=== PATIENT | female | born 1960 | race Caucasian/White ===

== ENCOUNTER → 2021-05-11 | Outpatient (CLI) | payer OTHER ==
--- NOTE | 2021-05-12 10:32 | ECHOF ---
Referral Reason:R06.02 Shortness of breath MEASUREMENTS -------- HEIGHT: 162.6 cm WEIGHT: 83.0 kg BP: 112/56 IVSd: 1.1 cm (0.6 - 1.1) LVIDd: 4.6 cm (3.9 - 5.3) LVPWd: 0.9 cm (0.6 - 1.1) EDV(Teich): 97 ml IVSs: 1.4 cm LVIDs: 2.7 cm LVPWs: 1.2 cm %IVS Thck: 32 % ESV(Teich): 28 ml EF(Teich): 71 % %FS: 40 % SV(Teich): 69 ml LA Diam: 3.2 cm (2.7 - 3.8) RVIDd: 3.3 cm (< 3.3) LALs A4C: 4.8 cm LAAs A4C: 15.4 cm LAESV A-L A4C: 42 ml LAESV MOD A4C: 40 ml LALs A2C: 4.8 cm LAAs A2C: 13.8 cm LAESV A-L A2C: 33 ml LAESV MOD A2C: 32 ml LAESV(A-L): 37 ml LAESV Index (A-L): 19.77 ml/m Ao Diam: 3.3 cm (2.0 - 3.7) AV Cusp: 2.2 cm (1.5 - 2.6) EPSS: 0.3 cm MV E Salas: 0.81 m/s MV DecT: 274 ms MV Dec Clinch: 3.0 m/s MV A Salas: 0.94 m/s MV E/A Ratio: 0.86 MV PHT: 79 ms AV Vmax: 1.23 m/s AV maxP.07 mmHg TR Vmax: 2.16 m/s TR maxP.73 mmHg RAP: 5.00 mmHg RVSP: 23.73 mmHg MV EF SLOPE: 61.87 mm/s (70 - 150) MV EXCURSION: 14.58 mm (> 18.000) FINDINGS -------- Sinus rhythm. This was a technically adequate study. The left ventricular size is normal. Left ventricular wall thickness is normal. Overall left vent ricular systolic function is normal with, an EF between 60 - 65 %. The right ventricle is mildly enlarged. The left atrium is normal in size. The right atrium is normal in size. Interatrial and interventricular septum intact. There is mild aortic valve sclerosis. There is trace to mild mitral regurgitation. Mild tricuspid regurgitation present. Right ventricular systolic pressure is normal at < 35 mmHg. Trace/mild (physiologic) pulmonic regurgitation. The aortic root size is normal. Normal inferior vena cava with normal inspiratory collapse consistent with estimated right atrial pre ssure of 5 mmHg. There is no pericardial effusion. CONCLUSIONS -------- 1. The left ventricular size is normal. 2. Left ventricular wall thickness is normal. 3. Overall left ventricular systolic function is normal with, an EF between 60 - 65 %. 4. The right ventricle is mildly enlarged. 5. There is mild aortic valve sclerosis. 6. There is trace to mild mitral regurgitation. 7. Mild tricuspid regurgitation present. 8. Trace/mild (physiologic) pulmonic regurgitation. 9. There is no pericardial effusion. ELECTRONIC SEMICONDUCTOR PROCESSOR: Fabi Domingo RDCS
== END | disposition home or self-care (01) ==
LOC: RADECHMAIN 13:09
PROVIDERS: ATTEND Internal Medicine Geriatric Medicine
DX: I35.8 Other nonrheumatic aortic valve disorders (principal); I34.0 Nonrheumatic mitral (valve) insufficiency; I07.1 Rheumatic tricuspid insufficiency; I37.1 Nonrheumatic pulmonary valve insufficiency
CPT/HCPCS: 93306

== ENCOUNTER → 2022-01-21 | Outpatient (CLI) | payer OTHER ==
--- NOTE | 2022-01-21 15:03 | P.SLEEP ---
History of Present Illness DATE: 01/21/2022 CONSULTATION/NEW PATIENT EVALUATION HISTORY OF PRESENT ILLNESS/SLEEP-WAKE EVALUATION: 61year old lady had been evaluated in the sleep center for possible obstructive sleep apnea hypopnea syndrome. SLEEP SCHEDULE: Usually sleep schedule on weekdays from 10:30 PM until 7 AM, during days off from 11 PM until 9 AM. FALLING ASLEEP: No problems with falling asleep, no TV in bedroom. DURING SLEEP: Patient usually sleeps on the back position, with snoring, awakenings from sleep from snoring, and possibly witnessed episodes of stop breathing during sleep. No history of hypnogogical hallucinations, sleep paralysis, or cataplexy. DURING THE DAY/WAKE STATE: In the morning patient wake up tired, has difficult ies to pay attention, has problems with the memory concentration, irritability and anxiety. [place] sleepiness scale is 8. Patient may take naps up to 2 times per day. PAST MEDICAL HISTORY: Hypothyroidism, ALLERGY to mold, dust, ALLERGIC rhinitis, hyperlipidemia. PAST SURGICAL HISTORY: Tonsillectomy. MEDICATIONS: Claritin, levothyroxine nasal spray. SOCIAL HISTORY: Negative for smoking, alcohol consumption occasional. FAMILY HISTORY: Heart problems, cancer, thyroid problems. REVIEW OF SYSTEMS: Snoring, awakenings from sleep. No fevers. No double vision. No recent chest pain. No shortness of breath. No abdominal pain. No bleeding episodes. No blood in urine. No seizure episodes. PHYSICAL EXAMINATION: GENERAL: A pleasant patient without any distress. VITAL SIGNS: BP 143/90 , HR 82 , RR 16 , weight 191.6 pounds, height 5 foot 3- 1/2 inches, body mass index 33.3 . HEENT: PERRLA, EOMI. Evaluation of oropharynx showed tongue protrudes midline, low position of soft palate Mallampati 23, wide pillars. NECK: Supple. No JVD. Thyroid is not palpable. 16 inches in circumference. LUNGS: Clear to percussion and to auscultation. Good air exchange. No wheezing or rhonchi. HEART: S1, S2 regular. No murmurs, gallops or rubs. ABDOMEN: Soft and nontender. Bowel sounds are present. No organomegaly appreciated. EXTREMITIES: No clubbing or cyanosis. ROPE CUTTER: Awake, alert, and oriented x3. Cranial nerves 2 to 7 intact. There is no fasciculation or atrophy noted. No focal deficits observed. ASSESSMENT: 1. Snoring, small oropharyngeal air space, wide neck 16 inches in circumference, sleepiness naps up to 2 times per day. Obstructive sleep apnea hypopnea syndrome. 2. Mild obesity body mass index 33.3. 3 ALLERGIC rhinitis. 4. ALLERGY to mold and dust. 5 hypothyroidism. 6. Status post tonsillectomy. 7. Hyperlipidemia. PLAN: 1. Polysomnography for evaluation of patient's breathing during sleep. 2. CPAP/BiPAP titration if sleep study confirms obstructive sleep apnea- hypopnea syndrome. 3. Preferable position during sleep on the side. 4. No driving if patient feels any sleepiness. Patient is aware of civil and criminal liability for unsafe driving. 5. Sleep hygiene with regular sleep time for at least 7.5-8 hours. 6. Watching weight. Thank you very much for referring this patient for consultation. Sincerely, Devin Mathew MD, PhD, FAASM. Diplomat of [place] Board of Sleep Medicine, Sleep Medicine Board by [place] [employer] Specialities [place] [employer] of Internal Medicine Roller Inspector And Mender of [facility] [place] Sleep Note - Sleep Note Sleep Note: Temperature: Pulse Rate: Respiratory Rate: Blood Pressure: SpO2: Height: Weight: BMI: Neck Circumference:
== END ==
LOC: SLEEP 13:55
PROVIDERS: ATTEND Internal Medicine
DX: G47.33 Obstructive sleep apnea (adult) (pediatric) (principal); E66.9 Obesity, unspecified; Z68.33 Body mass index [BMI] 33.0-33.9, adult; J30.9 Allergic rhinitis, unspecified; E03.9 Hypothyroidism, unspecified; Z90.09 Acquired absence of other part of head and neck; E78.5 Hyperlipidemia, unspecified; Z91.09 Other allergy status, other than to drugs and biological substances; Z79.890 Hormone replacement therapy
CPT/HCPCS: 99211

== ENCOUNTER → 2022-07-01 | Outpatient (CLI) | payer OTHER ==
--- NOTE | 2022-07-01 16:03 | P.PN ---
Subjective DATE: 07/01/2022 FOLLOW UP VISIT. Patient with obstructive sleep apnea hypopnea syndrome return to sleep center for follow-up visit. Recently patient had sleep study which documented obstructive sleep apnea hypopnea syndrome. Patient was initiated on PAP therapy and today is first visit after treatment was started. Patient was able to use PAP equipment every night for the whole night. Patient significantly improved he'll sleep quality after starting to use CPAP equipment, she feels better during the day does not take naps anymore, she was able to loose some weight after starting to use CPAP The patient does not have significant problems with the mask, PAP pressure and humidification. [place] sleepiness scale is 9. I checked information from PAP unit. PAP unit pressure 5-13, average 9.4 cm H2O. Usage is 100 % for more then 4 hours, average 7.5 hours per night. Leak is 19.6 l/m, which is in acceptable range. Apnea Hypopnea Index is 4.3 during previous months and to 5.3 during this months, which is borderline. Apnea-hypopnea index include 2.0 central apnea- hypopnea index and 0.7 unknown apnea-hypopnea index. MEDICATIONS:1. Levothyroxine 2. Claritin 3. Nasal spray During physical exam: GENERAL: A pleasant patient without any distress. VITAL SIGNS: BP 123/81, HR 63, RR 16 , weight 201.4, temperature 97.2, oxygen saturation at room air 99 . HEENT: PERRLA, EOMI.low position of soft palate, Mallapati 2-3 . NECK: Supple. No JVD. LUNGS: Clear to percussion and to auscultation. Good air exchange. No wheezing or rhonchi. HEART: S1, S2 regular. ABDOMEN: Soft and nontender.[] EXTREMITIES: No clubbing or cyanosis. NAILHEAD PUNCHER: Awake, alert, and oriented x3. No focal deficit. Impressions: 1. Severe bstructive sleep apnea-hypopnea syndrome original apnea-hypopnea index 31.8. Patient demonstrated great compliance with treatment, benefiting from treatment. 2. Mild obesity. 3. ALLERGIC rhinitis. 4. ALLERGIES to mold and dust. 5. Hypothyroidism. 6. Status post tonsillectomy. 7. Hyperlipidemia. Plan: 1. Continue using PAP equipment every night for the whole night. 2. To change air filter at least 1-2 times per month. 3. PAP unit should stay lower then position of the head. 4. Advised patient to remove all remaining water from humidifier canister daily and make it dry after each usage. Refill canister with fresh distilled water before each usage. 5. Sleep hygiene with regular time in bed for at least 8 hours. 6. Precautions related to driving. No driving if feel any sleepiness. 7. I will maintain prescription for PAP supplies including mask, tube, filters. 8. Follow up visit in 6 months or earlier if patient has any problems. 9. Watching and losing weight. Thank you very much for allowing me to participate in the management of your patient. Devin Mathew MD, PhD, FAASM. Diplomat of [place] [employer] of Sleep Medicine, Sleep Medicine Board by [place] [employer] Medicine Water Valve Repairer of [facility] [place]
== END ==
LOC: SLEEP 15:11
PROVIDERS: ATTEND Internal Medicine
DX: G47.33 Obstructive sleep apnea (adult) (pediatric) (principal); E66.9 Obesity, unspecified; E03.9 Hypothyroidism, unspecified; E78.5 Hyperlipidemia, unspecified; J30.9 Allergic rhinitis, unspecified; Z90.89 Acquired absence of other organs; Z79.890 Hormone replacement therapy; Z99.89 Dependence on other enabling machines and devices; Z91.09 Other allergy status, other than to drugs and biological substances
CPT/HCPCS: 99212

== ENCOUNTER → 2023-02-09 | Outpatient (CLI) | payer OTHER ==
--- NOTE | 2023-02-10 11:09 | P.PN ---
Subjective DATE: 02/09/2023 FOLLOW UP VISIT. Patient with obstructive sleep apnea hypopnea syndrome return to sleep center for follow-up visit. Information from previous visit have been reviewed. Patient is using PAP equipment every night for the whole night, getting PAP supplies in time. The patient does not have significant problems with the mask, PAP unit and humidification. [place] sleepiness scale is increased to 13. I checked information from PAP unit. PAP unit pressure 5-13, average 9.9 cm H2O. Usage is 100 % for more then 4 hours, average 6.4 hours per night. Leak is 19 l/m, which is in acceptable range. Apnea Hypopnea Index is 4.6, which is normal. MEDICATIONS:1. Hydrochlorothiazide 2. Afrin nasal spray During physical exam: GENERAL: A pleasant patient without any distress. VITAL SIGNS: BP 119/78, HR 62, RR 12 , weight 196.4, temperature 97.1, oxygen saturation at room air 99% . HEENT: PERRLA, EOMI.low position of soft palate, Mallapati 23 . NECK: Supple. No JVD. LUNGS: Clear to percussion and to auscultation. Good air exchange. No wheezing or rhonchi. HEART: S1, S2 regular. ABDOMEN: Soft and nontender. Slightly obese EXTREMITIES: No clubbing or cyanosis. Z OS MAINFRAME SYSTEMS PROGRAMMER: Awake, alert, and oriented x3. No focal deficit. Impressions: 1. Obstructive sleep apnea-hypopnea syndrome. Patient demonstrated great compliance with treatment, benefiting from treatment. 2. Restriction of nasal breathing secondary to ALLERGIC rhinitis. Presently patient is using Afrin nasal spray every night, which is not appropriate. 3. History of hypothyroidism. 4. Hyperlipidemia. 5. Status post tonsillectomy. Plan: 1. Continue using PAP equipment every night for the whole night. 2. To stop using Afrin. We discussed possibility to use nasal streeps. 3. PAP unit should stay lower then position of the head. 4. Advised patient to remove all remaining water from humidifier canister daily and make it dry after each usage. Refill canister with fresh distilled water before each usage. 5. Sleep hygiene with regular time in bed for at least 8 hours. 6. Precautions related to driving. No driving if feel any sleepiness. 7. I will maintain prescription for PAP supplies including mask, tube, filters. 8. Watching and losing weight. 9. Follow up visit in 6 months or earlier if patient has any problems. Thank you very much for allowing me to participate in the management of your patient. Devin Mathew MD, PhD, FAASM. Diplomat of [place] Board of Sleep Medicine, Sleep Medicine Board by [place] Board of Internal Medicine Pastry Cook Apprentice of [facility] [place]
== END ==
LOC: 3 N SLEEP 16:27
PROVIDERS: ATTEND Internal Medicine
DX: G47.33 Obstructive sleep apnea (adult) (pediatric) (principal); E03.9 Hypothyroidism, unspecified; E78.5 Hyperlipidemia, unspecified; J30.9 Allergic rhinitis, unspecified; Z98.890 Other specified postprocedural states; Z99.89 Dependence on other enabling machines and devices
CPT/HCPCS: 99212

== ENCOUNTER → 2023-07-21 | Outpatient (CLI) | payer OTHER ==
--- NOTE | 2023-07-22 19:04 | MM ---
Reason for Exam: Screening (asymptomatic). Last mammogram was performed 7 year(s) and 5 month(s) ago. Patient History: Menarche at age 12. First Full-Term at age 20. Postmenopausal. Paternal uncle had breast cancer. Mother had ovarian cancer at or over age 50. Risk Values: Sarah 5 year model risk: 1.2%. NCI Lifetime model risk: 5.5%. Prior Study Comparison: No prior studies available for comparison. Tissue Density: The breast tissue is heterogeneously dense. This may lower the sensitivity of mammography. Findings: Analyzed By CAD. No significant mass, suspicious microcalcification, or other discrete abnormality is seen. Overall Assessment: Negative, BI-RAD 1 Management: Screening Mammogram of both breasts in 1 year. . Patient should continue monthly self-breast exams. A clinical breast exam by your physician is recommended on an annual basis. This exam should not preclude additional follow-up of suspicious palpable abnormalities. Note on Sarah scores and lifetime risk: 1. A Sarah score greater than 3% is considered moderate risk. If this is the case, consider specialist referral to assess eligibility for a risk reducing agent. 2. If overall lifetime risk for the development of breast cancer is 20% or higher, the patient may qualify for future screening with alternating mammogram and breast MRI. Electronically signed and approved by: Sanju Tejeda M.D. Radiologist
== END | disposition home or self-care (01) ==
LOC: RADMAMWWP 16:25
PROVIDERS: ATTEND Family Medicine
DX: Z12.31 Encounter for screening mammogram for malignant neoplasm of breast (principal); Z80.3 Family history of malignant neoplasm of breast; Z78.0 Asymptomatic menopausal state
CPT/HCPCS: 77063; 77067

== ENCOUNTER → 2023-08-24 | Outpatient (CLI) | payer OTHER ==
[2023-08-24 17:59] VITALS: BP 117/79; PULSE 66; RESP 18; TEMP 97.6
--- NOTE | 2023-08-24 18:16 | P.PN ---
Subjective DATE: 09/01/2023 FOLLOW UP VISIT. Patient with obstructive sleep apnea hypopnea syndrome return to sleep center for follow-up visit. Information from previous visit have been reviewed. Patient is using PAP equipment every night for the whole night, getting PAP supplies in time. The patient does not have significant problems with the mask, PAP unit and humidification. Patient feels that it is not enough pressure in CPAP unit at the moment when she is starting to use CPAP equipment. [place] sleepiness scale is 10. I checked information from PAP unit. PAP unit pressure 5-13, average 9.7 cm H2O. Usage is 100% for more then 4 hours, average 7.2 hours per night. Leak is 14 l/m, which is in acceptable range. Apnea Hypopnea Index is 4.2, which is normal. MEDICATIONS:1. Hydrochlorothiazide 25 mg as needed During physical exam: GENERAL: A pleasant patient without any distress. VITAL SIGNS: Please see below. HEENT: PERRLA, EOMI.low position of soft palate, Mallapati 2-3 . NECK: Supple. No JVD. LUNGS: Clear to percussion and to auscultation. Good air exchange. No wheezing or rhonchi. HEART: S1, S2 regular. ABDOMEN: Soft and nontender.[] EXTREMITIES: No clubbing or cyanosis. FLIGHT CONTROL SPECIALIST: Awake, alert, and oriented x3. No focal deficit. Impressions: 1. Obstructive sleep apnea-hypopnea syndrome. Patient demonstrated great compliance with treatment, benefiting from treatment. 2. Allergic rhinitis. 3. Allergy to mold and dust. 4. History of hypothyroidism. 5. History of hyperlipidemia. 6. Status post tonsillectomy. I adjusted range over the pressure in CPAP unit to the level 8 to 13 cm of water. Patient tried level of pressure in the office and feel comfortable with that. Plan: 1. Continue using PAP equipment every night for the whole night. 2. To change air filter at least 1-2 times per month. 3. PAP unit should stay lower then position of the head. 4. Advised patient to remove all remaining water from humidifier canister daily and make it dry after each usage. Refill canister with fresh distilled water before each usage. 5. Sleep hygiene with regular time in bed for at least 8 hours. 6. Precautions related to driving. No driving if feel any sleepiness. 7. I will maintain prescription for PAP supplies including mask, tube, filters. 8. Watching weight. 9. Follow up visit in 6 months or earlier if patient has any problems. Thank you very much for allowing me to participate in the management of your patient. Devin Mathew MD, PhD, FAASM. Diplomat of [place] Board of Sleep Medicine, Sleep Medicine Board by [place] [employer] of Internal Medicine Forensic Manager of [facility] [place] Objective - Vital Signs Vital signs: Vital Signs Temp 97.6 F 08/24/23 17:38 Pulse 66 08/24/23 17:38 Resp 18 08/24/23 17:38 BP 117/79 08/24/23 17:38 Pulse Ox 99 08/24/23 17:38 FiO2 Intake & Output 08/23/23 08/24/23 08/24/23 18:59 06:59 18:59 Weight 84.425 kg
== END ==
LOC: 3 N SLEEP 16:04
PROVIDERS: ATTEND Internal Medicine
DX: G47.33 Obstructive sleep apnea (adult) (pediatric) (principal); E03.9 Hypothyroidism, unspecified; E78.5 Hyperlipidemia, unspecified; Z98.890 Other specified postprocedural states; Z99.89 Dependence on other enabling machines and devices; Z91.048 Other nonmedicinal substance allergy status; Z91.09 Other allergy status, other than to drugs and biological substances
CPT/HCPCS: 99212

== ENCOUNTER 2023-09-05 09:39 | Observation (INO) | payer OTHER ==
--- NOTE | 2023-09-05 10:25 | ED ---
Abdominal Pain HPI - General Chief Complaint: Abdominal Pain Stated Complaint: Abdominal Pain Time Seen by Provider: 09/05/23 10:23 Source: patient, RN notes reviewed Mode of arrival: ambulatory Limitations: no limitations - History of Present Illness Initial Comments: Patient is a 63-year-old female presented to the ER with a chief complaint of abdominal pain. She states around 3 AM this morning she started to have umbilical abdominal pain. She states since then she has noticed it shifting to her right lower quadrant. She also reports that movement of her right leg increases her pain. She reports generalized abdominal pain currently with incr eased intensity in right lower quadrant. She denies any fevers, chills, nausea, vomiting, constipation/diarrhea. She is not taking any medication at this time as she states she wanted to know what was going on with her body. Denies any decrease in appetite or food aversions. - Related Data Home Medications Medication Instructions Recorded Confirmed hydroCHLOROthiazide 25 mg PO DAILY 08/24/23 08/24/23 Allergies Allergy/AdvReac Type Severity Reaction Status Date / Time No Known Allergies Allergy Verified 09/05/23 10:03 Review of Systems ROS Statement: Those systems with pertinent positive or pertinent negative responses have been documented in the HPI. ROS Other: All systems not noted in ROS Statement are negative. Past Medical History Past Medical History: Thyroid Disorder Additional Past Medical History / Comment(s): Fluid retention in legs - sitting job, allergies History of Any Multi-Drug Resistant Organisms: None Reported Past Surgical History: Ear Surgery, Tonsillectomy Additional Past Surgical History / Comment(s): Decompress ear fluid sac and cut the balance nerve in ear, adenoid removed. Past Psychological History: Anxiety Smoking Status: Never smoker Past Alcohol Use History: Occasional Past Drug Use History: None Reported General Exam Limitations: no limitations General appearance: alert, in no apparent distress Head exam: Present: atraumatic, normocephalic, normal inspection Respiratory exam: Present: normal lung sounds bilaterally. Absent: respiratory distress, wheezes, rales, rhonchi, stridor Cardiovascular Exam: Present: regular rate, normal rhythm, normal heart sounds. Absent: systolic murmur, diastolic murmur, rubs, gallop, clicks GI/Abdominal exam: Present: soft, tenderness (Generalized. More intense and right lower quadrant), normal bowel sounds Extremities exam: Present: normal inspection, full ROM, normal capillary refill. Absent: tenderness, pedal edema, joint swelling, calf tenderness Neurological exam: Present: alert, oriented X3, CN II-XII intact Psychiatric exam: Present: normal affect, normal mood Skin exam: Present: warm, dry, intact, normal color. Absent: rash Course Vital Signs 09/05/23 09/05/23 10:02 12:32 Temperature 98.1 F Pulse Rate 81 65 Respiratory 16 16 Rate Blood Pressure 119/78 127/66 O2 Sat by Pulse 97 97 Oximetry - Reevaluation(s) Reevaluation #1: 09/05/23 12:[address] Cruz who advised on surgical intervention and to keep patient NPO. He accepts surgical admission. Medical Decision Making - Medical Decision Making Was pt. sent in by a medical professional or institution (, PA, ELECTRIC REFRIGERATOR PREPARER, urgent care, hospital, or custodial...) When possible be specific @ -No Did you speak to anyone other than the patient for history (EMS, parent, family, police, friend...)? What history was obtained from this source @ -No Did you review nursing and triage notes (agree or disagree)? Why? @ -I reviewed and agree with nursing and triage notes Were old charts reviewed (outside hosp., previous admission, EMS record, old EKG, old radiological studies, urgent care reports/EKG's, custodial records)? Report findings @ -No old charts were reviewed Differential Diagnosis (chest pain, altered mental status, abdominal pain women, abdominal pain men, vaginal bleeding, weakness, fever, dyspnea, syncope, headache, dizziness, GI bleed, back pain, seizure, CVA, palpatations, mental health, musculoskeletal)? @ -Differential Abdominal Pain Women:Appendicitis, Cholecystitis, diverticulosis, ischemic bowel, pancreatitis, hepatitis, UTI, gastroenteritis, AAA, incarcerated hernia, bowel obstruction, constipation, inflammatory bowel, hepatitis, peptic ulcer disease, splenic infarction, perforated viscus, vulvitis, ovarian torsion, PID, kidney stone, placenta abruption, this is not meant to be an all-inclusive list EKG interpreted by me (3pts min.). @ -None X-rays interpreted by me (1pt min.). @ -None done CT interpreted by me (1pt min.). @ -CT abdomen pelvis significant for dilated appendix measuring 1.5 cm with Alvarado appendiceal inflammatory changes compatible with uncomplicated acute appendicitis. U/S interpreted by me (1pt. min.). @ -None done What testing was considered but not performed or refused? (CT, X-rays, U/S, labs)? Why? @ -None What meds were considered but not given or refused? Why? @ -None Did you discuss the management of the patient with other professionals (professionals i.e. DrLion, PA, ELECTRIC REFRIGERATOR PREPARER, lab, RT, psych nurse, social services designee, innovations paraprofessional, teacher, energy control officer, correctional casework specialist)? Give summary @ -Yes, case discussed with Dr. Cruz who accept surgical admission. Was smoking cessation discussed for >3mins.? @ -No Was critical care preformed (if so, how long)? @ -No Were there social determinants of health that impacted care today? How? (Homelessness, low income, unemployed, alcoholism, drug addiction, transportation, low edu. Level, literacy, decrease access to med. care, fci, rehab)? @ -No Was there de-escalation of care discussed even if they declined (Discuss DNR or withdrawal of care, Hospice)? DNR status @ -No What co-morbidities impacted this encounter? (DM, HTN, Smoking, COPD, CAD, Cancer, CVA, ARF, Chemo, Hep., AIDS, mental health diagnosis, sleep apnea, morbid obesity)? @ -None Was patient admitted / discharged? Hospital course, mention meds given and route, prescriptions, significant lab abnormalities, going to OR and other per tinent info. @ -Admitted. Patient is a 63-year-old female presented to the ER with chief complaint of right lower quadrant abdominal pain. History and physical exam completed. Vitals stable. Patient no signs of acute distress and toxic appearing. Normal bowel sounds. Generalized abdominal tenderness on palpation. More intense abdominal pain and right lower quadrant. Positive obturator sign. Labs obtained significant for white blood cell count 12.3. CT significant for findings compatible with uncomplicated acute appendicitis. Patient started on IV Zosyn. Pain controlled in the ER. Blood cultures obtained. Case discussed with Dr. Cruz who advised surgical intervention. Results discussed with patient, all questions answered. Patient agreeable for admission. Patient admitted in stable condition for further care and treatment. Case discussed with ED attending, Dr. Olsen. Undiagnosed new problem with uncertain prognosis? @ -No Drug Therapy requiring intensive monitoring for toxicity (Heparin, Nitro, Insulin, Cardizem)? @ -No Were any procedures done? @ -No Diagnosis/symptom? @ -Appendicitis Acute, or Chronic, or Acute on Chronic? @ -Acute Uncomplicated (without systemic symptoms) or Complicated (systemic symptoms)? @ -Uncomplicated Side effects of treatment? @ -No Exacerbation, Progression, or Severe Exacerbation? @ -No Poses a threat to life or bodily function? How? (Chest pain, [place], [place], pneumonia, PE, COPD, DKA, ARF, appy, cholecystitis, CVA, Diverticulitis, Homicidal, Suicidal, threat to staff... and all critical care pts) @ -Yes, appendicitis can lead to bowel perforation which can be life- threatening. - Lab Data Result diagrams: 09/05/23 10:26 09/05/23 10:26 Lab Results 09/05/23 09/05/23 09/05/23 Range/Units 10:26 10:26 10:26 WBC 12.3 H (3.8-10.6) k/uL RBC 4.40 (3.80-5.40) m/uL Hgb 13.8 (11.4-16.0) gm/dL Hct 41.6 (34.0-46.0) % MCV 94.4 (80.0-100.0) fL MCH 31.4 (25.0-35.0) pg MCHC 33.2 (31.0-37.0) g/dL RDW 12.8 (11.5-15.5) % Plt Count 275 (150-450) k/uL MPV 8.3 Neutrophils % 81 % Lymphocytes % 12 % Monocytes % 4 % Eosinophils % 1 % Basophils % 0 % Neutrophils # 10.0 H (1.3-7.7) k/uL Lymphocytes # 1.5 (1.0-4.8) k/uL Monocytes # 0.5 (0-1.0) k/uL Eosinophils # 0.1 (0-0.7) k/uL Basophils # 0.0 (0-0.2) k/uL Sodium 138 (137-145) mmol/L Potassium 4.5 (3.5-5.1) mmol/L Chloride 107 (98-107) mmol/L Carbon Dioxide 22 (22-30) mmol/L Anion Gap 9 mmol/L BUN 20 H (7-17) mg/dL Creatinine 0.79 (0.52-1.04) mg/dL Est GFR (CKD-EPI)AfAm >90 (>60 ml/min/1.73 sqM) Est GFR (CKD-EPI)NonAf 81 (>60 ml/min/1.73 sqM) Glucose 97 (74-99) mg/dL Plasma Lactic Acid Drake 1.3 (0.7-2.0) mmol/L Calcium 9.3 (8.4-10.2) mg/dL Total Bilirubin 1.0 (0.2-1.3) mg/dL AST 44 H (14-36) U/L ALT 31 (4-34) U/L Alkaline Phosphatase 86 (38-126) U/L Total Protein 7.5 (6.3-8.2) g/dL Albumin 4.3 (3.5-5.0) g/dL Amylase 78 (30-110) U/L Lipase 210 (23-300) U/L Urine Color Urine Appearance (Clear) Urine pH (5.0-8.0) Ur Specific [place] (1.001-1.035) Urine Protein (Negative) Urine Glucose (UA) (Negative) Urine Ketones (Negative) Urine Blood (Negative) Urine Nitrite (Negative) Urine Bilirubin (Negative) Urine Urobilinogen (<2.0) mg/dL Ur Leukocyte Esterase (Negative) 09/05/23 Range/Units 12:19 WBC (3.8-10.6) k/uL RBC (3.80-5.40) m/uL Hgb (11.4-16.0) gm/dL Hct (34.0-46.0) % MCV (80.0-100.0) fL MCH (25.0-35.0) pg MCHC (31.0-37.0) g/dL RDW (11.5-15.5) % Plt Count (150-450) k/uL MPV Neutrophils % % Lymphocytes % % Monocytes % % Eosinophils % % Basophils % % Neutrophils # (1.3-7.7) k/uL Lymphocytes # (1.0-4.8) k/uL Monocytes # (0-1.0) k/uL Eosinophils # (0-0.7) k/uL Basophils # (0-0.2) k/uL Sodium (137-145) mmol/L Potassium (3.5-5.1) mmol/L Chloride (98-107) mmol/L Carbon Dioxide (22-30) mmol/L Anion Gap mmol/L BUN (7-17) mg/dL Creatinine (0.52-1.04) mg/dL Est GFR (CKD-EPI)AfAm (>60 ml/min/1.73 sqM) Est GFR (CKD-EPI)NonAf (>60 ml/min/1.73 sqM) Glucose (74-99) mg/dL Plasma Lactic Acid Drake (0.7-2.0) mmol/L Calcium (8.4-10.2) mg/dL Total Bilirubin (0.2-1.3) mg/dL AST (14-36) U/L ALT (4-34) U/L Alkaline Phosphatase (38-126) U/L Total Protein (6.3-8.2) g/dL Albumin (3.5-5.0) g/dL Amylase (30-110) U/L Lipase (23-300) U/L Urine Color Colorless Urine Appearance Clear (Clear) Urine pH 6.5 (5.0-8.0) Ur Specific [place] 1.017 (1.001-1.035) Urine Protein Negative (Negative) Urine Glucose (UA) Negative (Negative) Urine Ketones Negative (Negative) Urine Blood Negative (Negative) Urine Nitrite Negative (Negative) Urine Bilirubin Negative (Negative) Urine Urobilinogen <2.0 (<2.0) mg/dL Ur Leukocyte Esterase Negative (Negative) - Radiology Data Radiology results: report reviewed, image reviewed Disposition Clinical Impression: Acute appendicitis Disposition: ADMITTED IP TO THIS [facility] Condition: Good Referrals: Elsy Bravo DO [Primary Care Provider] - 1-2 days Time of Disposition: 12:07
[2023-09-05] MEDS: SODIUM CHLORIDE 0.9% 1,000 ML IV STA (10:27)
[2023-09-05] MEDS: ONDANSETRON 4 MG/2 ML VIAL IVP STA (10:27)
[2023-09-05] MEDS: HYDROmorphone 0.5 MG/0.5 ML SYRINGE IVP STA (10:27)
[2023-09-05 10:43] LABS: Basophils % (A) 0 %; Eosinophils # (A) 0.1 k/uL (0-0.7); Eosinophils % (A) 1 %; HCT 41.6 % (34.0-46.0); HGB 13.8 gm/dL (11.4-16.0); Lymphocytes # (A) 1.5 k/uL (1.0-4.8); Lymphocytes % (A) 12 %; MCH 31.4 pg (25.0-35.0); MCHC 33.2 g/dL (31.0-37.0); MCV 94.4 fL (80.0-100.0); Mean Platelet Volume 8.3; Monocytes # (A) 0.5 k/uL (0-1.0); Monocytes % (A) 4 %; Neutrophils % (A) 81 %; Platelet Count 275 k/uL (150-450); RDW 12.8 % (11.5-15.5); WBC 12.3 k/uL (3.8-10.6)
[2023-09-05 10:52] LABS: ALT 31 U/L (4-34); African American GFR (CKD) >90 (>60 ml/min/1.73 sqM); Amylase 78 U/L (30-110); Anion Gap 9 mmol/L; Blood Urea Nitrogen 20 mg/dL (7-17); Carbon Dioxide 22 mmol/L (22-30); Chloride 107 mmol/L (98-107); Glucose 97 mg/dL (74-99); Lipase 210 U/L (23-300); Non-African American GFR(CKD) 81 (>60 ml/min/1.73 sqM); Sodium 138 mmol/L (137-145); Total Protein 7.5 g/dL (6.3-8.2)
[2023-09-05 10:56] LABS: AST 44 U/L (14-36); Albumin 4.3 g/dL (3.5-5.0); Alkaline Phosphatase 86 U/L (38-126); Calcium 9.3 mg/dL (8.4-10.2); Potassium 4.5 mmol/L (3.5-5.1)
--- NOTE | 2023-09-05 11:49 | CT ---
EXAMINATION TYPE: CT abdomen pelvis w con DATE OF EXAM: 09/05/2023 COMPARISON: None HISTORY: RLQ abdominal pain CT DLP: 1128.8 mGycm CONTRAST: CT scan of the abdomen and pelvis is performed without Oral Contrast and with IV Contrast, patient in jected with 100 ml mL of Isovue 300. FINDINGS: LUNG BASES-: No visible nodule. No infiltrate. LIVER/GB: No calcified gallstones. Simple cyst dome of the liver measures 1.8 cm. Biliary tree is o f normal caliber. PANCREAS: No inflammation. No distinct mass. SPLEEN: No splenic enlargement. No lesion seen. ADRENALS: No nodule. No thickening. KIDNEYS/BLADDER: No hydronephrosis. No nephrolithiasis. No distinct renal mass. Urinary bladder g rossly unremarkable. BOWEL: Dilated appendix measuring 1.5 cm with periappendiceal inflammatory change compatible with unc omplicated acute appendicitis. No evidence for a perforation or free air. No evidence for abscess. GENITAL ORGANS: No gross abnormality. LYMPH NODES: No greater than 1cm abdominal or pelvic lymph nodes are appreciated. AORTA: No significant abnormality. OSSEOUS STRUCTURES: No significant abnormality is seen. OTHER: No significant additional abnormality is seen. IMPRESSION: 1. Dilated appendix measuring 1.5 cm with periappendiceal inflammatory change compatible with uncompl icated acute appendicitis.
[2023-09-05] MEDS ORDERED: HYDROmorphone 0.5 MG/0.5 ML SYRINGE IVP PRN ×2 (12:28→16:44)
[2023-09-05] MEDS ORDERED: NALOXONE 0.4 MG/ML 1 ML VIAL IV PRN ×2 (12:28→16:44)
[2023-09-05 12:29] LABS: Appearance,Urine Clear (Clear); Bilirubin,Urine Negative (Negative); Blood,Urine Negative (Negative); Color,Urine Colorless; Glucose,Urine (UA) Negative (Negative); Ketones,Urine Negative (Negative); Leukocyte Esterase,Urine Negative (Negative); Nitrite,Urine Negative (Negative); PH, Urine 6.5 (5.0-8.0); Protein,Urine Negative (Negative); Specific Gravity,Urine 1.017 (1.001-1.035); Urobilinogen,Urine <2.0 mg/dL (<2.0)
[2023-09-05] MEDS: PIPERACILLIN-TAZOBACTAM 3.375 GM in SODIUM CHLORIDE 0.9% 100 ML IVPB STA (12:54)
[2023-09-05] MEDS: SODIUM CHLORIDE 0.9% 1,000 ML IV SCH (13:01)
[2023-09-05] MEDS: SODIUM CHLORIDE 0.9% 1,000 ML IV ONE ×2 (14:12→17:36)
[2023-09-05] MEDS ORDERED: ONDANSETRON 4 MG/2 ML VIAL ONE (14:31)
[2023-09-05] MEDS: DEXAMETHASONE SOD PHOSPHATE 4 MG/ML 1 ML VIAL IVP ONE (14:33)
[2023-09-05] MEDS: ONDANSETRON 4 MG/2 ML VIAL IVP ONE (14:33)
--- NOTE | 2023-09-05 14:44 | P.GSHP ---
History of Present Illness H&P Date: 09/05/23 Chief Complaint: right lower quadrant pain is a 61-year-old female who is entered with right lower quadrant pain and the antrum. Her CAT scan shows evidence of acute appendicitis with a dilated appendix. Past Medical History Past Medical History: Thyroid Disorder Additional Past Medical History / Comment(s): Fluid retention in legs - sitting job, allergies History of Any Multi-Drug Resistant Organisms: None Reported Past Surgical History: Ear Surgery, Tonsillectomy Additional Past Surgical History / Comment(s): Decompress ear fluid sac and cut the balance nerve in ear, adenoid removed. Past Psychological History: Anxiety Smoking Status: Never smoker Past Alcohol Use History: Occasional Past Drug Use History: None Reported Medications and Allergies Home Medications Medication Instructions Recorded Confirmed Type hydroCHLOROthiazide 25 mg PO DAILY PRN 08/24/23 09/05/23 History Ascorbic Acid [Vitamin C] 1,000 mg PO DAILY 09/05/23 09/05/23 History Magnesium(Unknown Dose) 1 tab PO DAILY 09/05/23 09/05/23 History Multivitamins, Thera [Multivitamin 1 tab PO DAILY 09/05/23 09/05/23 History (formulary)] [place]-3/Dha/Epa/Fish Oil [Fish Oil 1 cap PO DAILY 09/05/23 09/05/23 History 1,000 mg Softgel] Potassium Gluconate 99 mg PO DAILY 09/05/23 09/05/23 History guaiFENesin [Mucinex] 600 mg PO BID 09/05/23 09/05/23 History Allergies Allergy/AdvReac Type Severity Reaction Status Date / Time atorvastatin [From Lipitor] AdvReac forgetful Verified 09/05/23 14:09 Surgical - Exam Vital Signs Temp Pulse Resp BP Pulse Ox 98.1 F 81 16 119/78 97 09/05/23 10:02 09/05/23 10:02 09/05/23 10:02 09/05/23 10:02 09/05/23 10:02 - General well developed, well nourished, no distress - Eyes PERRL - ENT normal pinna - Neck no masses - Respiratory normal expansion - Cardiovascular Rhythm: regular - Abdomen mild tenderness throughout with right-sided pain with deep palpation. Abdomen: soft Results - Labs 09/05/23 10:26 09/05/23 10:26 Abnormal Lab Results - Last 24 Hours (Table) 09/05/23 09/05/23 Range/Units 10:26 10:26 WBC 12.3 H (3.8-10.6) k/uL Neutrophils # 10.0 H (1.3-7.7) k/uL BUN 20 H (7-17) mg/dL AST 44 H (14-36) U/L Diabetes panel 09/05/23 Range/Units 10:26 Sodium 138 (137-145) mmol/L Potassium 4.5 (3.5-5.1) mmol/L Chloride 107 (98-107) mmol/L Carbon Dioxide 22 (22-30) mmol/L BUN 20 H (7-17) mg/dL Creatinine 0.79 (0.52-1.04) mg/dL Glucose 97 (74-99) mg/dL Calcium 9.3 (8.4-10.2) mg/dL AST 44 H (14-36) U/L ALT 31 (4-34) U/L Alkaline Phosphatase 86 (38-126) U/L Total Protein 7.5 (6.3-8.2) g/dL Albumin 4.3 (3.5-5.0) g/dL Calcium panel 09/05/23 Range/Units 10:26 Calcium 9.3 (8.4-10.2) mg/dL Albumin 4.3 (3.5-5.0) g/dL Pituitary panel 09/05/23 Range/Units 10:26 Sodium 138 (137-145) mmol/L Potassium 4.5 (3.5-5.1) mmol/L Chloride 107 (98-107) mmol/L Carbon Dioxide 22 (22-30) mmol/L BUN 20 H (7-17) mg/dL Creatinine 0.79 (0.52-1.04) mg/dL Glucose 97 (74-99) mg/dL Calcium 9.3 (8.4-10.2) mg/dL Adrenal panel 09/05/23 Range/Units 10:26 Sodium 138 (137-145) mmol/L Potassium 4.5 (3.5-5.1) mmol/L Chloride 107 (98-107) mmol/L Carbon Dioxide 22 (22-30) mmol/L BUN 20 H (7-17) mg/dL Creatinine 0.79 (0.52-1.04) mg/dL Glucose 97 (74-99) mg/dL Calcium 9.3 (8.4-10.2) mg/dL Total Bilirubin 1.0 (0.2-1.3) mg/dL AST 44 H (14-36) U/L ALT 31 (4-34) U/L Alkaline Phosphatase 86 (38-126) U/L Total Protein 7.5 (6.3-8.2) g/dL Albumin 4.3 (3.5-5.0) g/dL Assessment and Plan Assessment: acute appendicitis. We'll perform laparoscopic appendectomy.
[2023-09-05] MEDS: HEPARIN SODIUM,PORCINE 5,000 UNIT/ML 1 ML VIAL SQ ONE (14:47)
[2023-09-05] MEDS: BUPIVACAINE (PF) 0.25% 30 ML VIAL SQ ONE ×2 (15:32→16:22)
[2023-09-05] MEDS ORDERED: MIDAZOLAM 2 MG/2 ML VIAL ONE (16:01)
[2023-09-05] MEDS ORDERED: LIDOCAINE 1% INJ 10MG/ML (20 ML MDV) ONE (16:01)
[2023-09-05] MEDS ORDERED: PROPOFOL 10 MG/ML 20 ML VIAL IV ONE (16:01)
[2023-09-05] MEDS ORDERED: SUCCINYLCHOLINE CHLORIDE 200 MG/10 ML VIAL IV ONE (16:01)
[2023-09-05] MEDS ORDERED: ROCURONIUM 10 MG/ML (5 ML VIAL) IV ONE (16:01)
[2023-09-05] MEDS ORDERED: NEOSTIGMINE 1 MG/ML 10 ML VIAL ONE (16:01)
[2023-09-05] MEDS ORDERED: GLYCOPYRROLATE 0.2 MG/ML 2 ML VIAL ONE (16:01)
[2023-09-05] MEDS ORDERED: fentaNYL (PF) 50 MCG/ML 2 ML AMP ONE (16:01)
[2023-09-05] MEDS ORDERED: HYDROmorphone 1 MG/ML 1 ML SYRINGE IVP PRN (16:44)
[2023-09-05] MEDS ORDERED: ONDANSETRON 4 MG/2 ML VIAL IVP PRN (16:44)
[2023-09-05] MEDS ORDERED: ACETAMINOPHEN TAB 325 MG TAB PO PRN (16:44)
--- NOTE | 2023-09-05 16:44 | P.OP ---
Date of Procedure: 09/05/23 Preoperative Diagnosis: acute appendicitis Postoperative Diagnosis: acute appendicitis Procedure(s) Performed: laparoscopic appendectomy Anesthesia: BYRON Surgeon: Arian Cruz Pathology: other (appendix) Condition: stable Disposition: PACU Description of Procedure: The patient's placed on the operating table in the supine position. The patient received general anesthesia. The abdomen was prepped and draped in the usual sterile fashion. The skin was anesthetized 1% local Xylocaine at the trocar sites. Using an 11 blade the skin was incised at the umbilicus. The umbilicus was grasped with a Rebecca clamp and then a Veress needle was placed into the peritoneal cavity. Position of the Veress needle was confirmed with positive drop test. After adequate insufflation a 5 mm trocar was placed into the peritoneal cavity. The abdomen was further insufflated. And then the laparoscope was placed in the peritoneal cavity. Next a 5 mm trocar was placed in the midline suprapubic position. And then a 10 mm trocar was placed in the midline epigastric position. The patient was rotated with the right side up and in Trendelenburg. The appendix was visualized. The appendix appeared to be inflamed. The appendix was grasped and then using the Harmonic scissors the mesoappendix was divided. A PDS Endoloop was then placed around the base of the appendix. And then the appendix was divided using Harmonic scissors. The appendix was placed into an Endo Catch and brought out through the 10 mm trocar site. The abdomen was irrigated. There is no bleeding seen. The trochars withdrawn. The skin was closed interrupted 3-0 Monocryl suture. Dermabond dressing was applied. Patient was sent to recovery room in stable condition.
[2023-09-05] MEDS: HYDROmorphone 0.5 MG/0.5 ML SYRINGE IVP ONE (17:14)
[2023-09-05] MEDS: LACTATED RINGERS 1,000 ML IV ONE (18:01)
[2023-09-05] MEDS: KETOROLAC 15 MG/ML 1 ML VIAL IVP SCH (18:33)
[2023-09-06] MEDS ORDERED: HYDROcodone/APAP 5-325MG 1 EACH TAB PO PRN (08:14)
[2023-09-06 08:34] LABS: Basophils % (A) 0 %; Eosinophils % (A) 0 %; HCT 37.8 % (34.0-46.0); HGB 12.3 gm/dL (11.4-16.0); Lymphocytes # (A) 1.2 k/uL (1.0-4.8); Lymphocytes % (A) 14 %; MCH 31.9 pg (25.0-35.0); MCHC 32.6 g/dL (31.0-37.0); MCV 97.8 fL (80.0-100.0); Mean Platelet Volume 8.7; Monocytes # (A) 0.4 k/uL (0-1.0); Monocytes % (A) 5 %; Neutrophils # (A) 6.4 k/uL (1.3-7.7); Neutrophils % (A) 80 %; Platelet Count 241 k/uL (150-450); RBC 3.87 m/uL (3.80-5.40); RDW 12.4 % (11.5-15.5); WBC 8.1 k/uL (3.8-10.6)
[2023-09-06] MEDS: ENOXAPARIN 40 MG/0.4 ML SYRINGE SQ SCH (08:47)
[2023-09-06] MEDS ORDERED: guaiFENesin 600 MG TABLET.ER PO PRN (10:22)
--- NOTE | 2023-09-06 12:01 | P.CONS ---
History of Present Illness - Reason for Consult Consult date: 09/06/23 Medical management Requesting physician: Arian Cruz - Chief Complaint Appendicitis - History of Present Illness This is a 63-year-old female presented to the ER with umbilical and right lower quadrant abdominal pain. CT reported dilated appendix measuring 1.5 cm with Alvarado appendiceal inflammatory change compatible with uncomplicated acute appendicitis. Evaluated by general surgery. Patient underwent laparoscopic appendectomy, postop day #1. Tolerated procedure well. Pain controlled. Passing flatus. Denies chest pain, palpitations or shortness of breath. Maintaining O2 sats in the 90s on room air. Afebrile, normal WBC. Hemoglobin 12.3, platelets 241. UA negative. Vital signs stable. Review of Systems ROS Statement: Those systems with pertinent positive or pertinent negative responses have been documented in the HPI. ROS Other: All systems not noted in ROS Statement are negative. Past Medical History Past Medical History: Thyroid Disorder Additional Past Medical History / Comment(s): Fluid retention in legs - sitting job, allergies History of Any Multi-Drug Resistant Organisms: None Reported Past Surgical History: Ear Surgery, Tonsillectomy Additional Past Surgical History / Comment(s): Decompress ear fluid sac and cut the balance nerve in ear, adenoid removed. Past Anesthesia/Blood Transfusion Reactions: No Reported Reaction Smoking Status: Never smoker Medications and Allergies Home Medications Medication Instructions Recorded Confirmed Type hydroCHLOROthiazide 25 mg PO DAILY PRN 08/24/23 09/05/23 History Ascorbic Acid [Vitamin C] 1,000 mg PO DAILY 09/05/23 09/05/23 History Magnesium(Unknown Dose) 1 tab PO DAILY 09/05/23 09/05/23 History Multivitamins, Thera [Multivitamin 1 tab PO DAILY 09/05/23 09/05/23 History (formulary)] [place]-3/Dha/Epa/Fish Oil [Fish Oil 1 cap PO DAILY 09/05/23 09/05/23 History 1,000 mg Softgel] Potassium Gluconate 99 mg PO DAILY 09/05/23 09/05/23 History guaiFENesin [Mucinex] 600 mg PO BID 09/05/23 09/05/23 History Acetaminophen Tab [Tylenol] 1,000 mg PO Q6HR PRN #30 tablet 09/06/23 Rx Ibuprofen [Motrin] 600 mg PO Q8HR PRN #30 tab 09/06/23 Rx Allergies Allergy/AdvReac Type Severity Reaction Status Date / Time atorvastatin [From Lipitor] AdvReac forgetful Verified 09/05/23 14:09 Physical Exam Vitals: Vital Signs Temp Pulse Pulse Resp BP BP Pulse Ox 09/06/23 07:20 98.0 F 62 17 120/69 96 09/06/23 02:00 98.1 F 69 16 119/81 91 L 09/05/23 20:30 73 16 09/05/23 19:47 98.1 F 73 16 107/56 97 09/05/23 17:58 98 F 60 16 118/75 97 09/05/23 17:19 50 L 15 113/59 97 09/05/23 17:04 70 17 118/59 98 09/05/23 16:49 97.6 F 74 16 135/73 97 09/05/23 14:10 98.2 F 60 16 130/62 99 09/05/23 14:01 66 16 112/69 100 09/05/23 12:32 65 16 127/66 97 Intake and Output 09/05/23 09/06/23 09/06/23 22:59 06:59 14:59 Intake Total 850 875 Output Total 5 Balance 845 875 Intake: IV 850 Intake, IV Titration 875 Amount Lactated Ringers 1,000 ml 500 @ 125 mls/hr IV .Q8H ONE Rx#:[id number] Sodium Chloride 0.9% 1, 375 000 ml @ 0 mls/hr IV .STK -MED ONE Rx#:[id number] Output: Estimated Blood Loss 5 Other: Weight 83.915 kg PHYSICAL EXAM: VITAL SIGNS: [As above] GENERAL: Alert and oriented x 3, sitting up in bed, no acute distress HEENT: Normocephalic, conjunctivae normal. eyes normal. NECK: Supple, no JVD. CARDIOVASCULAR: S1, S2 regular.. No murmur RESPIRATION: Unlabored, equal air entry, essentially clear with bilateral bases diminished. ABDOMEN: Soft, status post surgery, no guarding. LEGS: No edema. no swelling NERVOUS SYSTEM: Cranial N 2-12 grossly normal. No focal deficits. Strength and sensation grossly intact.. Skin: Warm and dry, no rash Results CBC & Chem 7: 09/06/23 08:17 09/05/23 10:26 Assessment and Plan Assessment: Acute appendicitis status post laparoscopic appendectomy Morbid obesity, BMI 32 Plan: Continue on current medication regimen ,monitoring and symptomatic treatment. Increase ambulation as tolerated. Pain management as per general surgery. Significant clinical improvement, discharge planning in progress as pe r general surgery. Follow-up with PCP in 1 to 2 weeks. My CEMENT CONTRACTOR state
--- NOTE | 2023-09-06 12:52 | P.DS ---
Providers Date of admission: 09/05/23 12:45 Expected date of discharge: 09/06/23 Attending physician: Arian Cruz Consults: 09/05/23 16:44 Consult Physician Routine Consulting Provider: David Romo Consult Reason/Comments: medical management Do you want consulting provider notified?: Yes Primary care physician: Elsy Bravo Hospital Course: Discharge diagnosis 1. Acute appendicitis Hospital course This is a 63-year-old female who presented with umbilical abdominal pain shifted to the right lower quadrant. CT scan had shown evidence of acute appendicitis. Patient is status post laparoscopic appendectomy. Patient tolerated surgery well. Pain is controlled. She is tolerating diet. She is afebrile. She is ambulating. She is stable for discharge. Please refer to chart for any further details. Physician Visual Merchandising Assistant note has been reviewed by physician. Signing provider agrees with the documented findings, assessment, and plan of care. Patient Condition at Discharge: Stable Plan - Discharge Summary New Discharge Prescriptions: New Ibuprofen [Motrin] 600 mg PO Q8HR PRN #30 tab PRN Reason: Pain Acetaminophen Tab [Tylenol] 1,000 mg PO Q6HR PRN #30 tablet PRN Reason: Pain Continue hydroCHLOROthiazide 25 mg PO DAILY PRN PRN Reason: edema guaiFENesin [Mucinex] 600 mg PO BID [place]-3/Dha/Epa/Fish Oil [Fish Oil 1,000 mg Softgel] 1 cap PO DAILY Potassium Gluconate 99 mg PO DAILY Multivitamins, Thera [Multivitamin (formulary)] 1 tab PO DAILY Ascorbic Acid [Vitamin C] 1,000 mg PO DAILY Magnesium(Unknown Dose) 1 tab PO DAILY Discharge Medication List hydroCHLOROthiazide 25 mg PO DAILY PRN 08/24/23 [History] Ascorbic Acid [Vitamin C] 1,000 mg PO DAILY 09/05/23 [History] Magnesium(Unknown Dose) 1 tab PO DAILY 09/05/23 [History] Multivitamins, Thera [Multivitamin (formulary)] 1 tab PO DAILY 09/05/23 [History] [place]-3/Dha/Epa/Fish Oil [Fish Oil 1,000 mg Softgel] 1 cap PO DAILY 09/05/23 [History] Potassium Gluconate 99 mg PO DAILY 09/05/23 [History] guaiFENesin [Mucinex] 600 mg PO BID 09/05/23 [History] Acetaminophen Tab [Tylenol] 1,000 mg PO Q6HR PRN #30 tablet 09/06/23 [Rx] Ibuprofen [Motrin] 600 mg PO Q8HR PRN #30 tab 09/06/23 [Rx] Follow up Appointment(s)/Referral(s): David Romo MD [STAFF PHYSICIAN] - 2 Weeks (The office is on lunch please call and make follow up appointment.) Arian Cruz MD [STAFF PHYSICIAN] - 09/15/23 2:10 pm Patient Instructions/Handouts: Acetaminophen (By mouth), Ibuprofen (By mouth), Laparoscopic Appendectomy (DC) Activity/Diet/Wound Care/Special Instructions: No driving while taking [place] No lifting over 10 pounds You may shower. No soaking or tub baths for 2 weeks Very light activity until you are reevaluated at your follow up appointment with your surgeon Discharge Disposition: HOME SELF-CARE
[2023-09-06 12:54] VITALS: BP 108/72; PULSE 58; RESP 20; TEMP 98.2
[2023-09-06] MEDS ORDERED: guaiFENesin 600 MG TABLET.ER PO SCH (21:00)
[2023-09-07] MEDS ORDERED: ASCORBIC ACID 500 MG TAB PO SCH (09:00)
[2023-09-07] MEDS ORDERED: MAGNESIUM OXIDE 400 MG TAB PO SCH (09:00)
[2023-09-07] MEDS ORDERED: NON FORMULARY DRUG (Omega-3/Dha/Epa/Fish Oil [Fish Oil 1,000 Mg Softgel] 1 EACH Capsule) PO SCH (09:00)
[2023-09-07] MEDS ORDERED: NON FORMULARY DRUG (Potassium Gluconate [Potassium Gluconate] 99 MG Tablet) PO SCH (09:00)
[2023-09-07] MEDS ORDERED: MULTIVITAMINS, THERA 1 EACH TAB PO SCH (09:00)
== END 2023-09-06 13:48 | disposition home or self-care (01) ==
LOC: EC 09:39 → 5NMEDONC 12:45
PROVIDERS: ADMIT Surgery; ATTEND Surgery
DX: K35.80 Unspecified acute appendicitis (principal); E66.01 Morbid (severe) obesity due to excess calories; Z68.32 Body mass index [BMI] 32.0-32.9, adult; F41.9 Anxiety disorder, unspecified; Z79.899 Other long term (current) drug therapy
CPT/HCPCS: 44970; 96376; 96361 ×2; 96365; 96366 ×2; 96367; 96372 ×2; 96375; 99285; 36415; 88304; 80053; 82150; 83605; 83690; 85025 ×2; 81003; 87040; 74177; G0378 ×2; J2543; J2250; J0330; J1644; J1100; J2710; J2405; J2001; J1650; J3010; J1885 ×2; J2704; J1170; Q9967; J0665

== ENCOUNTER → 2024-03-22 | Outpatient (CLI) | payer OTHER ==
[2024-03-22 10:18] VITALS: BP 148/86; PULSE 56; RESP 16; TEMP 97.4
--- NOTE | 2024-03-22 10:52 | P.PROGSL ---
Subjective DATE: 03/22/2024 FOLLOW UP VISIT. Patient with obstructive sleep apnea hypopnea syndrome return to sleep center for follow-up visit. Information from previous visit have been reviewed. Patient is using PAP equipment every night for the whole night, getting PAP supplies in time. The patient does not have significant problems with the mask, PAP unit and humidification. [place] sleepiness scale is 8, which is acceptable. I checked information from PAP unit. PAP unit pressure 8-13, average 11 cm H2O. Usage is 100% for more then 4 hours, average 7 hours per night. Leak is 19 l/m, which is in acceptable range. Apnea Hypopnea Index is 4.0, which is normal. MEDICATIONS have been reviewed, please see below. During physical exam: GENERAL: A pleasant patient without any distress. VITAL SIGNS: Please see below, weight is 192 lbs. HEENT: PERRLA, EOMI.low position of soft palate, [place] 23. NECK: Supple. No JVD. LUNGS: Clear to percussion and to auscultation. Good air exchange. No wheezing or rhonchi. HEART: S1, S2 regular. Systolic murmur on aorta. ABDOMEN: Soft and nontender.[] EXTREMITIES: No clubbing or cyanosis. PRESS TENDER STAR SIGNAL: Awake, alert, and oriented x3. No focal deficit. Impressions: 1. Obstructive sleep apnea-hypopnea syndrome. Patient demonstrated great compliance with treatment, benefiting from treatment. 2. Allergic rhinitis. Allergy to mold and dust. 3. Hyperlipidemia. 4. History of hypothyroidism. 5. Hypertension. 6. Status post tonsillectomy. 7. Mild obesity, BMI 33.4 Plan: 1. Continue using PAP equipment every night for the whole night. 2. Sleep hygiene with regular time in bed for at least 7.5-8 hours 3. PAP unit should stay lower then position of the head. 4. Advised patient to remove all remaining water from humidifier canister daily and make it dry after each usage. Refill canister with fresh distilled water before each usage. 5. Watching weight. 6. Precautions related to driving. No driving if feel any sleepiness. 7. I will maintain prescription for PAP supplies including mask, tube, filters. 8. Follow up visit in 6-8 months or earlier if patient has any problems. Thank you very much for allowing me to participate in the management of your patient. Devin Mathew MD, PhD, FAASM. Diplomat of [place] [employer], Sleep Medicine Board by [place] [employer] [facility] [place] cc: Elsy Bravo DO Objective - Vital Signs Vital Signs: Vital Signs Temp 97.4 F L 03/22/24 10:17 Pulse 56 L 03/22/24 10:17 Resp 16 03/22/24 10:17 BP 148/86 03/22/24 10:17 Pulse Ox 99 03/22/24 10:17 FiO2 Intake & Output 03/21/24 03/22/24 03/22/24 18:59 06:59 18:59 Weight 87.09 kg Home Medications: Home Medications Medication Instructions Recorded Confirmed Type hydroCHLOROthiazide 25 mg PO DAILY PRN 08/24/23 03/22/24 History Ascorbic Acid [Vitamin C] 1,000 mg PO DAILY 09/05/23 03/22/24 History Magnesium(Unknown Dose) 1 tab PO DAILY 09/05/23 03/22/24 History Multivitamins, Thera [Multivitamin 1 tab PO DAILY 09/05/23 03/22/24 History (formulary)] [place]-3/Dha/Epa/Fish Oil [Fish Oil 1 cap PO DAILY 09/05/23 03/22/24 History 1,000 mg Softgel] Potassium Gluconate 99 mg PO DAILY 09/05/23 09/05/23 History guaiFENesin [Mucinex] 600 mg PO BID 09/05/23 03/22/24 History Acetaminophen Tab [Tylenol] 1,000 mg PO Q6HR PRN #30 tablet 09/06/23 03/22/24 Rx Ibuprofen [Motrin] 600 mg PO Q8HR PRN #30 tab 09/06/23 Rx
== END ==
LOC: 3 N SLEEP 10:07
PROVIDERS: ATTEND Internal Medicine
CPT/HCPCS: 99212